=== PATIENT | female | born 1975 | race Caucasian/White ===

== ENCOUNTER 2024-10-02 19:40 | Emergency (ER) | payer OTHER, BC ==
[~2024-10-02] VITALS: Ht 165.1 cm; Wt 93.2 kg
[2024-10-02 19:44] VITALS: BP 140/70; PULSE 74
[2024-10-02 20:37] LABS: BASOPHILS # (AUTO) 0.1 X10'3 (0-0.2); BASOPHILS % (AUTO) 0.8 % (0-1); EOSINOPHILS % (AUTO) 0.6 % (0-6); LYMPHOCYTES # (AUTO) 2.3 X10'3 (1.1-4.8); LYMPHOCYTES % (AUTO) 31.4 % (21-51); MEAN CORPUSCULAR HEMOGLOBIN 27.1 PG (27.0-31.0); MEAN CORPUSCULAR HGB CONC 32.6 g/dL (33.0-36.5); MEAN CORPUSCULAR VOLUME 83.2 FL (78-98); MEAN PLATELET VOLUME 7.7 FL (7.4-10.4); MONOCYTES # (AUTO) 0.2 X10'3 (0-0.9); MONOCYTES % (AUTO) 2.9 % (2-12); NEUTROPHILS # (AUTO) 4.8 X10'3 (1.8-7.7); NEUTROPHILS % (AUTO) 64.3 % (42-75); PLATELET COUNT 375 X10'3 (140-440); RED BLOOD COUNT 4.81 X10'6 (4.20-5.60); WHITE BLOOD COUNT 7.4 X10'3 (4.5-11.0)
[2024-10-02 20:51] LABS: ALANINE AMINOTRANSFERASE 17 U/L (12-78); ALBUMIN 3.7 G/DL (3.4-5.0); ALBUMIN/GLOBULIN RATIO 0.9 (1.1-1.5); ALKALINE PHOSPHATASE 54 IU/L (46-116); ANION GAP 10 (8-16); ASPARTATE AMINO TRANSFERASE 15 U/L (10-37); BILIRUBIN,TOTAL 0.2 MG/DL (0.1-1.0); BLOOD UREA NITROGEN 13 MG/DL (7-18); BUN/CREATININE RATIO 16.9 (10.0-20.0); CALCIUM 8.6 MG/DL (8.5-10.1); CHLORIDE 106 MMOL/L (99-107); CREATININE 0.77 MG/DL (0.40-0.90); GLUCOSE 108 MG/DL (70-104); LIPASE 56 U/L (16-77); MAGNESIUM 1.8 MG/DL (1.5-2.4); POTASSIUM 3.4 MMOL/L (3.5-5.1); SODIUM 140 MMOL/L (135-145); TOTAL PROTEIN 7.8 G/DL (6.4-8.2); eCRCL 78 ML/MIN; eGFR 79 ML/MIN
[2024-10-02 21:00] LABS: ANISOCYTOSIS 2+; POIKILOCYTOSIS FEW
[2024-10-02] MEDS ORDERED: MECL-302 PO (21:16)
[2024-10-02] MEDS: magnesium oxide 400mg tablet PO ONE (21:38)
[2024-10-02] MEDS: potassium Cl 20 mEq SR tablet PO ONE (21:38)
[2024-10-02] MEDS: meclizine 12.5mg tablet PO ONE (21:38)
[2024-10-02 22:04] VITALS: TEMP 98.3; O2SAT 100
[2024-10-02 22:07] VITALS: RESP 15
== END 2024-10-02 22:10 | disposition home or self-care (01) ==
LOC: ER 19:41
DX: R42 Dizziness and giddiness (principal); R55 Syncope and collapse
CPT/HCPCS: 70450; 71045; 80053; 82948; 83605; 83690; 83735; 85008; 85025; 87040; 93005; 99285; J8597